=== PATIENT | female | born 1965 | race Caucasian/White ===

== ENCOUNTER 2017-12-05 17:20 | Emergency (ER) | payer OTHER, SELFPAY ==
[2017-12-05 17:23] VITALS: PULSE 89; RESP 16; TEMP 36.3; O2SAT 98
[2017-12-05 17:26] VITALS: BP 157/85
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
[2017-12-05] MEDS: Ibuprofen 600 MG TAB PO (18:18)
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
== END 2017-12-05 19:10 | disposition home or self-care (01) ==
PROVIDERS: Emergency Provider Nurse Practitioner Family; PCP General Practice
DX: S80.02XA Contusion of left knee, initial encounter (principal); S30.0XXA Contusion of lower back and pelvis, initial encounter; V40.5XXA Car driver injured in collision with pedestrian or animal in traffic accident, initial encounter; Z04.1 Encounter for examination and observation following transport accident; I10 Essential (primary) hypertension
CPT/HCPCS: 73562; 99284; 99282

== ENCOUNTER 2018-02-21 07:51 | Outpatient (REF) | payer OTHER, SELFPAY ==
[2018-02-21 13:40] LABS: ALT 43 U/L (12-78); AST 21 U/L (15-37); Albumin 3.9 g/dL (3.4-5.0); Alkaline Phosphatase 104 U/L (46-116); Anion Gap 8.6 mmol/L (3-11); BUN 16 mg/dL (7-18); Bilirubin, Total 0.5 mg/dL (0.2-1.0); CO2 26.4 mmol/L (21.0-32.0); Chloride 103 mmol/L (98-107); Cholesterol 204 mg/dL (50-200); Glucose 107 mg/dL (70-100); HDL Cholesterol 38 mg/dL (40-60); LDL CHOLESTEROL 132 mg/dL (<100); Potassium 4.2 mmol/L (3.5-5.1); Sodium 138 mmol/L (136-145); Total Protein 6.9 g/dL (6.4-8.2); Triglyceride 255 mg/dL (30-150)
== END 2018-02-21 08:11 ==
LOC: NCHCN 07:51
PROVIDERS: PCP General Practice; Visit Provider Nurse Practitioner
DX: I10 Essential (primary) hypertension (principal); E78.5 Hyperlipidemia, unspecified
CPT/HCPCS: 80053; 80061; 83721

== ENCOUNTER 2018-02-28 10:57 | Outpatient (REF) | payer OTHER, SELFPAY ==
--- NOTE | 2018-02-28 10:15 | PAPFT_PTH ---
PATIENT: Tona Cohen LOC: [facility]#:[id number] AGE/SX: 53/F ROOM: RE02/28/[address]: Deysi De León : 1965 BED: DIS: 02/28/2018 SPEC #: [id number] RECD: 02/28/18 12:57 STATUS: GABRIEL REEmmanuel #: [id number] TEDDY: 02/28/18 10:[address]: Deysi De León DEPT: [facility] Cytology RECD BY: Gemma Zarco ENTERED: 02/28/18 12:58 SP TYPE: PAPFT OTHR DR: Emmy Markham Tissues: 1 - CX/ENDOCX FOR PAP SMEARS Procedures: PAP THIN PREP/UVM Screening HPV DNA PROBE Comments: [id number]
== END 2018-02-28 11:17 ==
LOC: NCHCN 10:57
PROVIDERS: PCP General Practice; Visit Provider Nurse Practitioner
DX: Z00.00 Encounter for general adult medical examination without abnormal findings (principal); Z12.4 Encounter for screening for malignant neoplasm of cervix; Z11.51 Encounter for screening for human papillomavirus (HPV)
CPT/HCPCS: 88142; 87624

== ENCOUNTER 2018-08-28 22:18 | Outpatient (REF) | payer OTHER, SELFPAY ==
[2018-08-28 22:02] LABS: TSH (W/Ref FT4) 1.86 uIU/mL (0.358-3.74)
== END 2018-08-28 22:38 ==
LOC: NCHCN 22:18
PROVIDERS: PCP Nurse Practitioner; Visit Provider Nurse Practitioner
DX: R53.83 Other fatigue (principal)
CPT/HCPCS: 82306; 84443

== ENCOUNTER 2019-05-14 10:30 | Outpatient (REF) | payer OTHER, SELFPAY ==
--- NOTE | 2019-05-14 09:15 | PAPFT_PTH ---
PATIENT: Tona Cohen LOC: [facility]#:[id number] AGE/SX: 54/F ROOM: RE05/14/[address]: Deysi De León : 1965 BED: DIS: 05/14/2019 SPEC #: [id number] RECD: 05/14/19 12:59 STATUS: GABRIEL REEmmanuel #: [id number] TEDDY: 05/14/19 09:[address]: Deysi De León DEPT: [facility] Cytology RECD BY: Gemma Zarco Tissues: 1 - CX/ENDOCX FOR PAP SMEARS Procedures: PAP THIN PREP/UVM Screening HPV DNA PROBE Comments: [id number]
[2019-05-14 19:02] LABS: ALT 60 U/L (14-59); AST 31 U/L (15-37); Albumin 4.5 g/dL (3.4-5.0); Alkaline Phosphatase 134 U/L (46-116); Anion Gap 13.6 mmol/L (3-11); BUN 16 mg/dL (7-18); Bilirubin, Total 0.7 mg/dL (0.2-1.0); CO2 24.4 mmol/L (21.0-32.0); CREATININE 0.66 mg/dL (0.55-1.02); Calcium 9.7 mg/dL (8.5-10.1); Calculated LDL 102 mg/dL (<100); Chloride 105 mmol/L (98-107); Cholesterol 194 mg/dL (<200); Glucose 101 mg/dL (74-106); HDL Cholesterol 42 mg/dL (40-60); Potassium 4.1 mmol/L (3.5-5.1); Sodium 143 mmol/L (136-145); Total Protein 7.7 g/dL (6.4-8.2); Triglyceride 251 mg/dL (<150)
== END 2019-05-14 10:50 ==
LOC: NCHCN 10:30
PROVIDERS: PCP Nurse Practitioner; Visit Provider Nurse Practitioner
DX: Z00.00 Encounter for general adult medical examination without abnormal findings (principal); I10 Essential (primary) hypertension; E78.5 Hyperlipidemia, unspecified; Z12.4 Encounter for screening for malignant neoplasm of cervix; Z11.51 Encounter for screening for human papillomavirus (HPV)
CPT/HCPCS: 80053; 80061; 88142; 87624

== ENCOUNTER 2019-08-14 02:06 | Outpatient (CLI) | payer OTHER, SELFPAY ==
--- NOTE | 2019-08-14 | DI.MAMMO_ITS ---
EXAM: MG MAMMO SCREENING CLINICAL HISTORY: SCREENING, Z12.39 TECHNIQUE: Bilateral full field digital CC and MLO mammographic images were obtained with 3D tomosyn thesis and utilizing computer aided detection (CAD). COMPARISON: Available for comparison. FINDINGS: Masses/Architectural Distortion: There are stable scattered nodules both breasts. No suspicious mass es are seen. Microcalcifications: No suspicious pleomorphic-type are seen. Skin Thickening/Nipple Retraction: None. IMPRESSION: 1. No significant interval change with no specific features of malignancy noted. 2. Unless there is more urgent need, screening mammography is recommended, as per [employer] guidelines. BI-RADS Category 2 - Benign Findings Breast Density - Category B - Scattered areas of fibroglandular density A negative radiographic report should not delay biopsy if a dominant or clinically suspicious mass is present. Up to ten percent of cancers are not identified on mammography. A negative report may reinforce clinical impression. Adenosis and dense breasts may obscure an underlying neoplasm. False positive reports average 6 to 10%. Patient will receive a letter notifying them of these results.
== END 2019-08-14 02:26 ==
PROVIDERS: PCP Nurse Practitioner; Visit Provider Nurse Practitioner
DX: Z12.31 Encounter for screening mammogram for malignant neoplasm of breast (principal)
CPT/HCPCS: 77063; 77067

== ENCOUNTER 2019-12-02 16:59 | Outpatient (REF) | payer OTHER, SELFPAY | END 2019-12-02 17:19 | LOC: NCHCN 16:59 | PROVIDERS: PCP Nurse Practitioner; Visit Provider Nurse Practitioner Family | DX: J02.9 Acute pharyngitis, unspecified (principal) | CPT/HCPCS: 87070 ==

== ENCOUNTER 2019-12-02 17:45 | Outpatient (REF) | payer OTHER, SELFPAY ==
[2019-12-05 17:39] LABS: Patient Race White; SARS-CoV-2 RNA Undetected (Undetected); SARS-CoV-2 Specimen Source Nasal
== END 2019-12-02 18:05 ==
LOC: NCHCN 17:45
PROVIDERS: PCP Nurse Practitioner; Visit Provider Nurse Practitioner Family
DX: J02.9 Acute pharyngitis, unspecified (principal)
CPT/HCPCS: U0003

== ENCOUNTER 2020-08-11 10:43 | Outpatient (REF) | payer OTHER, SELFPAY ==
[2020-08-11 16:04] LABS: ALT 57 U/L (14-59); AST 22 U/L (15-37); Albumin 4.1 g/dL (3.4-5.0); Alkaline Phosphatase 138 U/L (46-116); Anion Gap 13.8 mmol/L (3-11); BUN 14 mg/dL (7-18); Bilirubin, Total 0.5 mg/dL (0.2-1.0); CO2 24.2 mmol/L (21.0-32.0); CREATININE 0.8 mg/dL (0.55-1.02); Calcium 9.4 mg/dL (8.5-10.1); Calculated LDL 121 mg/dL (<100); Chloride 106 mmol/L (98-107); Cholesterol 207 mg/dL (<200); Glucose 104 mg/dL (74-106); HDL Cholesterol 44 mg/dL (40-60); Potassium 4.2 mmol/L (3.5-5.1); Sodium 144 mmol/L (136-145); Total Protein 7.4 g/dL (6.4-8.2); Triglyceride 214 mg/dL (<150)
[2020-08-12 11:42] LABS: IgA 114 mg/dL (85-499); Interpretation (See Note); Tissue Transglutaminase IgA <1.2 U/mL (<4.0)
== END 2020-08-11 10:44 | disposition home or self-care (01) ==
LOC: NCHCN 10:43
PROVIDERS: PCP Nurse Practitioner; Visit Provider Nurse Practitioner
DX: K58.9 Irritable bowel syndrome, unspecified (principal); R19.7 Diarrhea, unspecified; I10 Essential (primary) hypertension; E78.5 Hyperlipidemia, unspecified
CPT/HCPCS: 80053; 80061; 82784; 83516

== ENCOUNTER 2020-08-25 18:22 | Outpatient (REF) | payer OTHER, SELFPAY ==
[2020-08-26 14:54] LABS: COVID-19 RT-PCR UVMMC Result Negative (Negative)
== END 2020-08-25 18:23 | disposition home or self-care (01) ==
LOC: LBN 18:22
PROVIDERS: PCP Nurse Practitioner; Visit Provider Physician Assistant
DX: Z20.822 Contact with and (suspected) exposure to COVID-19 (principal); J02.9 Acute pharyngitis, unspecified
CPT/HCPCS: U0003

== ENCOUNTER 2021-01-28 11:24 | Outpatient (CLI) | payer OTHER, SELFPAY ==
[2021-02-01 13:17] LABS: TB Interpretation Negative (Negative); TB1 Ag minus Nil 0.01 IU/ml; TB2 Ag minus Nil 0.01 IU/mL
== END 2021-01-28 11:25 | disposition home or self-care (01) ==
LOC: LBO 11:28
PROVIDERS: PCP Nurse Practitioner; Visit Provider Nurse Practitioner Family
DX: Z02.1 Encounter for pre-employment examination (principal)
CPT/HCPCS: 86480

== ENCOUNTER 2022-04-15 00:28 | Outpatient (CLI) | payer OTHER, SELFPAY ==
--- NOTE | 2022-04-15 12:00 | DI.MAMMO_ITS ---
Exam(s) MAMMO SCREENING EXAM: MAMMO SCREENING CLINICAL HISTORY: screening. TECHNIQUE: Bilateral full field digital CC and MLO mammographic images were obtained with 3D tomosyn thesis and utilizing computer aided detection (CAD). COMPARISON: Prior mammograms dating back to 2013 were reviewed. FINDINGS: In the anterior aspect of the right breast there is an asymmetric density seen on CC view measuring a pproximately 1.4 x 1.2 cm located 2.5 cm in from the nipple on the CC view. More posteriorly in the right breast there is a benign-appearing nodular density which has appearance probable benign intramammary lymph node, unchanged from August 2019. In the left breast there is a nodular density located laterally which is unchanged from 2013. However, there is a microcalcification group evident in the left breast now evident, this located sli ghtly lateral of center and approximately 7 cm in from the nipple on the CC view and similar distance on the MLO view. Mag views recommended. There is no significant architectural distortion nor skin thickening-retraction. IMPRESSION: Bilateral findings as described above which require further investigation. This includes a nodular d ensity anteriorly in the right breast requiring spot compression views and ultrasound of the right br east. Also microcalcification group now evident in the left breast as described above which requires spot Mag 2D views both CC, MLO, and straight lateral. BI-RADS Category 0 - Assessment Incomplete: Need additional imaging evaluation Breast Density - Category B - Scattered areas of fibroglandular density Breast density Category C or D implies that the patient has dense breast tissue. Dense breast tissue can make it harder to find cancer on a mammogram. Dense breast tissue is also associated with an incr eased risk of breast cancer. This information about the result of the mammogram report was provided to the patient to raise their awareness. Use this report when you speak with the patient about their risks for breast cancer, which includes their family history. At that time, you may recommend additional screening tests (Ultrasoun d or MRI) as these tests may add significant information. A negative radiographic report should not delay biopsy if a dominant or clinically suspicious mass is present. Up to ten percent of cancers are not identified on mammography. A negative report may reinforce clinical impression. Adenosis and dense breasts may obscure an underlying neoplasm. False positive reports average 6 to 10%. Patient will receive a letter notifying them of these results.
== END 2022-04-15 00:48 ==
LOC: DI 00:29
PROVIDERS: PCP Nurse Practitioner; Visit Provider Nurse Practitioner Women's Health
DX: Z12.31 Encounter for screening mammogram for malignant neoplasm of breast (principal); R92.8 Other abnormal and inconclusive findings on diagnostic imaging of breast
CPT/HCPCS: 77063; 77067

== ENCOUNTER 2022-04-28 00:22 | Outpatient (CLI) | payer OTHER, SELFPAY ==
--- NOTE | 2022-04-28 | DI.US_ITS ---
Exam(s) US BREAST RT COMPLETE MG MAMMO SCREEN CALL BACK BI EXAM: MG MAMMO SCREEN CALL BACK BI AND COMPLETE RIGHT BREAST ULTRASOUND CLINICAL HISTORY: NODULAR DENSITY RT BREAST, MICROCALCIFICATIONS LT BREAST. R92.8 ABNL MAMMO. TECHNIQUE: BILATERAL spot mammographic images obtained with BOTH 2D AND 3D tomosynthesisand utilizin g computer aided detection (CAD). . Complete RIGHT breast Ultrasound was also performed, including all 4 quadrants, the retroareolar vinicius on, and the ipsilateral axilla. COMPARISON: Prior mammograms were reviewed. This additional imaging was performed due to findings described on the recent screening mammogram of 04/15/2022 prior mammograms of 2013 and August 2019 wer e reviewed. There are no interval mammograms since August 2019.. FINDINGS: DIAGNOSTIC MAMMOGRAM: Right breast: Additional mammographic views performed todaydo not dissipate the anteriorly located nodule. Left breast: The 2D Mag views reveal this microcalcification group to be presently benign in appearance. Six-romeo h follow-up recommended COMPLETE RIGHT BREAST ULTRASOUND: Ultrasound performed today reveals a 7 x 3 millimeter benign-appearing micro cyst at 12 o'clock posit ion, this corresponding to the finding on the mammogram.. At the 2 o'clock position there is a small 3 x 2 millimeter finding which is probably hemorrhagic julius rocyst or tiny fibroadenoma. At the 6 o'clock position there is a benign 4 millimeter microcyst. There are no other focal ultrasound findings in the 4 quadrants of the right breast. Scanning of the ipsilateral axilla reveals no significant adenopathy. IMPRESSION: 1. Right breast nodule which appears to be a microcyst at 12 o'clock position as seen on today's ult rasound. There also other benign-appearing ultrasound findings in the right breast as detailed above . 2. Left breast microcalcification group which presently exhibits benign characteristics but which wa s not evident on the most recent mammogram of August 2019. Appropriate follow-up as discussed by myself with the patient today, is repeat breast imaging in 6 mo nths, this too is repeat mammogram and Mag views of the left breast microcalcification group as well as repeat mammogram and ultrasound of the right breast. The patient was informed of these findings and recommendations by myself prior to leaving the departm ent today. BI-RADS Category 3 - 6 month - Probably Benign Finding: Recommend follow-up mammography in 6 months Breast Density - Category C - Heterogeneously dense Breast density Category C or D implies that the patient has dense breast tissue. Dense breast tissue can make it harder to find cancer on a mammogram. Dense breast tissue is also associated with an incr eased risk of breast cancer. This information about the result of the mammogram report was provided to the patient to raise their awareness. Use this report when you speak with the patient about their risks for breast cancer, which includes their family history. At that time, you may recommend additional screening tests (Ultrasoun d or MRI) as these tests may add significant information. A negative radiographic report should not delay biopsy if a dominant or clinically suspicious mass is present. Up to ten percent of cancers are not identified on mammography. A negative report may reinforce clinical impression. Adenosis and dense breasts may obscure an underlying neoplasm. False positive reports average 6 to 10%. Patient will receive a letter notifying them of these results.
== END 2022-04-28 00:42 ==
LOC: DI 00:22
PROVIDERS: PCP Nurse Practitioner; Visit Provider Nurse Practitioner Women's Health
DX: Z12.31 Encounter for screening mammogram for malignant neoplasm of breast (principal); R92.8 Other abnormal and inconclusive findings on diagnostic imaging of breast
CPT/HCPCS: 76642; 77063; 77067

== ENCOUNTER → 2022-10-27 04:17 | Outpatient (CLI) | payer OTHER, SELFPAY ==
--- NOTE | 2022-10-27 08:00 | DI.MAMMO_ITS ---
Exam(s) US BREAST LT COMPLETE US BREAST RT COMPLETE MG MAMMO DIAGNOSTIC BI EXAM: MG MAMMO DIAGNOSTIC BI AND BILATERAL COMPLETE BREAST ULTRASOUND CLINICAL HISTORY: 6 month f/u,RT BREAST NODULE,LT BREAST MICROCALCIFICATION. TECHNIQUE: BILATERAL CC AND MLO mammographic images were obtained with 3D tomosynthesis technique an d utilizing computer aided detection (CAD). ALSO LEFT BREAST 2D MAG VIEW PERFORMED BILATERAL COMPLETE BREAST ULTRASOUND performed, including all 4 quadrants and the retroareolar region s and both axillary regions. COMPARISON: Prior mammograms dating back to 2013 were reviewed, the most recent being April 2022. . Prior right breast ultrasound April 2022 was also reviewed FINDINGS: BILATERAL DIAGNOSTIC MAMMOGRAM: In the right breast the previously described nodular densities remain unchanged. In the left breast there is a lobulated nodular density in the upper outer quadrant which is unchange d from at least 2013 and has apparently undergone prior biopsy (fibroadenoma according to the patient ). The recently described microcalcification group in the left breast appears unchanged and remains summer gn appearance. BILATERAL COMPLETE BREAST ULTRASOUND: Left breast: At the 2 o'clock position there is a 1.6 by 0.8 cm lobulated solid nodule corresponds to the chronica lly present nodule on the mammogram and has appearance of a fibroadenoma with neutral through transmi ssion. This apparently has undergone prior biopsy according to the patient. There are no other angelique d nodules in left breast. At the 6 o'clock position there are 2 small benign microcysts measuring 6 and 4 mm. Scanning of the left axilla is negative for adenopathy. Right breast: At the 12 o'clock position the previously described 7 x 3 mm cyst is no longer seen. At the 11 o'clock position there is a 7 by millimeter microcyst and there is also a smaller 3-4 vishal meter microcyst. No other focal ultrasound findings in the right breast. Scanning of the right axilla is negative for adenopathy IMPRESSION: 1. Stable benign-appearing microcalcification group in the left breast, unchanged from mammogram of F ebruary 2022. 2. Stable lobulated left breast solid nodule which is unchanged from at least 2013 and has been previ ously biopsied according to the patient-fibroadenoma. 3. Stable right breast mammographic findings. Benign-appearing right breast ultrasound findings Appropriate follow-up is repeat mammogram and breast ultrasound in 6 months which is a time for next scheduled yearly mammogram. At that time repeat Mag 2D view of left breast microcalcification group is again recommend. The patient was informed of the findings and follow-up recommendations by myself prior to leaving the department today. BI-RADS Category 3 - 6 month - Probably Benign Finding: Recommend follow-up mammography in 6 months Breast Density - Category B - Scattered areas of fibroglandular density Breast density Category C or D implies that the patient has dense breast tissue. Dense breast tissue can make it harder to find cancer on a mammogram. Dense breast tissue is also associated with an incr eased risk of breast cancer. This information about the result of the mammogram report was provided to the patient to raise their awareness. Use this report when you speak with the patient about their risks for breast cancer, which includes their family history. At that time, you may recommend additional screening tests (Ultrasoun d or MRI) as these tests may add significant information. A negative radiographic report should not delay biopsy if a dominant or clinically suspicious mass is present. Up to ten percent of cancers are not identified on mammography. A negative report may reinforce clinical impression. Adenosis and dense breasts may obscure an underlying neoplasm. False positive reports average 6 to 10%. Patient will receive a letter notifying them of these results.
== END ==
PROVIDERS: PCP Nurse Practitioner Family; Visit Provider Nurse Practitioner Women's Health
DX: N63.21 Unspecified lump in the left breast, upper outer quadrant (principal); Z12.31 Encounter for screening mammogram for malignant neoplasm of breast; N63.15 Unspecified lump in the right breast, overlapping quadrants
CPT/HCPCS: 76642; 77062; 77066; G0279

== ENCOUNTER 2022-11-16 04:01 | Outpatient (CLI) | payer OTHER, SELFPAY ==
[2022-11-16 08:59] LABS: Hemoglobin A1C 5.6 % (<5.7)
[2022-11-16 09:07] LABS: ALT 44 U/L (14-59); AST 19 U/L (15-37); Albumin 3.9 g/dL (3.4-5.0); Alkaline Phosphatase 116 U/L (46-116); Anion Gap 9.1 mmol/L (3-11); BUN 19 mg/dL (7-18); Bilirubin, Total 0.6 mg/dL (0.2-1.0); CO2 24.9 mmol/L (21.0-32.0); CREATININE 0.8 mg/dL (0.55-1.02); Calcium 9.3 mg/dL (8.5-10.1); Calculated LDL 97 mg/dL (<100); Chloride 104 mmol/L (98-107); Cholesterol 189 mg/dL (<200); Estimated GFR 86.96 (mL/min/1.73m2); Glucose 115 mg/dL (74-106); HDL Cholesterol 50 mg/dL (40-60); Sodium 138 mmol/L (136-145); Total Protein 7.5 g/dL (6.4-8.2); Triglyceride 211 mg/dL (<150)
== END 2022-11-16 04:02 | disposition home or self-care (01) ==
LOC: LBO 04:01
PROVIDERS: PCP Nurse Practitioner Family; Visit Provider Nurse Practitioner Family
DX: Z76.89 Persons encountering health services in other specified circumstances (principal)
CPT/HCPCS: 36415; 80053; 80061; 83036; 84443

== ENCOUNTER → 2023-04-20 01:44 | Outpatient (CLI) | payer OTHER, SELFPAY ==
--- NOTE | 2023-04-20 05:47 | DI.MAMMO_ITS ---
Exam(s) MG MAMMO DIAGNOSTIC BI EXAM: MG MAMMO DIAGNOSTIC BI CLINICAL HISTORY: F/U ABNL MAMMO,6 MO F/U, R92.8 TECHNIQUE: Mammograms were interpreted according to the usual protocol including computer analysis w ith CAD system, tomosynthesis and C-view imaging. Additional spot magnification views performed of t he left breast. COMPARISON: MG Screening-Bilateral Mammography from 07/17/2013 MG MG MAMMO SCREENING from 08/14/2019 MG MG MAMMO SCREENING from 04/15/2022 US US BREAST RT COMPLETE from 04/28/2022 US US BREAST RT COMPLETE from 10/27/2022 MG MG MAMMO DIAGNOSTIC BI from 10/27/2022 US US BREAST LT COMPLETE from 10/27/2022 FINDINGS: The breasts are composed of scattered fibroglandular densities, Breast Density category B. No suspicious masses or suspicious microcalcifications are seen. Stable bilateral areas of nodularit y. Chronic appearing calcifications, unchanged, in the upper outer quadrant. No skin thickening or abnormal axillary lymph nodes are seen. There has been no significant change from prior exams. IMPRESSION: BI-RADS Category 2 - Negative Mammogram with benign findings. Yearly screening mammography is recommended. Breast Density - Category B, scattered fibroglandular densities. A negative radiographic report should not delay biopsy if a dominant or clinically suspicious mass is present. Up to ten percent of cancers are not identified on mammography. A negative report may reinforce clinical impression. Adenosis and dense breasts may obscure an underlying neoplasm. False positive reports average 6 to 10%. Patient will receive a letter notifying them of these results.
== END ==
PROVIDERS: PCP Nurse Practitioner Family; Visit Provider Nurse Practitioner Women's Health
DX: Z12.31 Encounter for screening mammogram for malignant neoplasm of breast (principal); R92.8 Other abnormal and inconclusive findings on diagnostic imaging of breast
CPT/HCPCS: 77062; 77066; G0279

== ENCOUNTER 2023-07-07 01:12 | Outpatient (CLI) | payer OTHER, SELFPAY ==
[2023-07-07 09:44] LABS: ALT 57 U/L (14-59); AST 22 U/L (15-37); Alkaline Phosphatase 112 U/L (46-116); Anion Gap 10.4 mmol/L (3-11); BUN 17 mg/dL (7-18); Bilirubin, Total 0.6 mg/dL (0.2-1.0); CO2 25.6 mmol/L (21.0-32.0); CREATININE 0.8 mg/dL (0.55-1.02); Calcium 9.1 mg/dL (8.5-10.1); Calculated LDL 103 mg/dL (<100); Chloride 106 mmol/L (98-107); Cholesterol 196 mg/dL (<200); Estimated GFR 86.42 (mL/min/1.73m2); Glucose 114 mg/dL (74-106); HDL Cholesterol 49 mg/dL (40-60); Sodium 142 mmol/L (136-145); Total Protein 7.5 g/dL (6.4-8.2); Triglyceride 222 mg/dL (<150)
[2023-07-07 10:02] LABS: Vitamin D 25 Total 25.4 ng/mL (30-100)
[2023-07-07 20:42] LABS: Hepatitis C Ab w Rflx HCV PCR Negative (Negative)
== END 2023-07-07 01:13 | disposition home or self-care (01) ==
LOC: LBO 01:12
PROVIDERS: PCP Nurse Practitioner Family; Visit Provider Nurse Practitioner Family
DX: Z00.00 Encounter for general adult medical examination without abnormal findings (principal)
CPT/HCPCS: 36415; 80053; 80061; 82306; 86803

== ENCOUNTER 2023-09-24 17:45 | Emergency (ER) | payer OTHER, SELFPAY ==
--- NOTE | 2023-09-24 17:45 | DI.RAD_ITS ---
Exam(s) XR KNEE RT 3V AP,LAT,EDA EXAM: XR KNEE RT 3V AP,LAT,EDA CLINICAL HISTORY: pain s/p fall. TECHNIQUE: 2D digital imaging was performed. COMPARISON: No exams were available for comparison FINDINGS: 3 views There is a fracture of the outer rim of the medial tibial plateau with mild displacement of the fract ure fragment. There does not appear to be an obvious joint effusion-hemarthrosis. Bone density is normal. No significant osseous lesions. No radiopaque foreign body. No obvious degenerative changes evident in the knee joint. IMPRESSION: Fracture of the medial rim of the medial tibial plateau. Orthopedic follow-up recommended First read by Alexandra [facility] Final report called by myself to emergency room physician 09/25/2023 a.m. DATA REPOSITORY: RADIATION DOSE DELIVERED:
[2023-09-24 17:47] VITALS: BP 131/99; PULSE 87; RESP 16; TEMP 36.9; O2SAT 98
--- NOTE | 2023-09-24 17:56 | W.ED.GENAD ---
Discharge Plan Disposition Patient Disposition: Home Condition: Stable Discharge Details Clinical Impression: Contusion of knee, right Primary Care Provider: Teresa Sykes ED Provider: Leonard Hogan Home Meds and New Rx's Prescriptions: Continued carvedilol 25 mg tablet 25 mg PO BID Rx Instructions: must administer with a meal/food Zepbound 2.5 mg/0.5 mL pen injector 2.5 mg subcut QWEEK Qty: 2 1RF albuterol sulfate [ProAir HFA] 90 mcg/actuation HFA aerosol inhaler 2 puff inhalation Q6H PRN cholecalciferol (vitamin D3) 25 mcg (1,000 unit) tablet 25 mcg PO DAILY acetaminophen [Tylenol] 325 mg tablet 325 mg PO ONCE PRN riboflavin (vitamin B2) [Vitamin B-2] 100 mg tablet 100 mg PO DAILY Ubrelvy 50 mg tablet 50 mg PO ONCE PRN (Reason: migraine headache) Qty: 30 1RF Rx Instructions: as a single dose; may repeat once in >=2 hours after first dose if needed amlodipine 10 MG tablet 10 mg PO DAILY Qsymia 3.75-23 mg capsule, ER multiphase 24 hr 1 cap PO DAILY PRN Patient Comments: TAKE ONE CAPSULE BY MOUTH EVERY DAY FOR 14 DAYS THEN SWITCH TO A HIGHER DOSE Discharge Instructions Additional Instructions: If pain is not improving follow-up with your primary care provider if the radiologist sees anything of concern on the xray I will call you If you feel more ill or have severe worsening pain return to the emergency department for reevaluation HPI General Mode of arrival: ambulatory. Date/Time Provider Initiated Documentation: 09/24/23 17:46. Limitations to Documentation: no limitations. Information obtained by: patient. History of Present Illness 58 year old F presents to the emergency department with the chief complaint of right knee injury, described as moderate, Quality is described as aching, and is localized to the right and lower extremity. Patient started experiencing this hour(s) (1) and it has been constant. Rest improves symptom(s), Movement worsens symptoms . Patient notes no other symptoms.. Patient did receive the following treatments prior to arrival, none Related Data Home Medications ?Medication ?Instructions ?Recorded ?Confirmed amlodipine 10 mg tablet 10 mg PO DAILY 09/01/16 09/24/23 acetaminophen 325 mg tablet 325 mg PO ONCE PRN 09/23/22 09/24/23 (Tylenol) albuterol sulfate 90 mcg/actuation 2 puff inhalation Q6H PRN 09/23/22 09/24/23 aerosol inhaler (ProAir HFA) cholecalciferol (vitamin D3) 25 25 mcg PO DAILY 09/23/22 09/24/23 mcg (1,000 unit) tablet riboflavin (vitamin B2) 100 mg 100 mg PO DAILY 09/23/22 09/24/23 tablet (Vitamin B-2) ubrogepant 50 mg tablet (Ubrelvy) 50 mg PO ONCE PRN migraine 11/10/22 09/24/23 headache #30 tabs carvedilol 25 mg tablet 25 mg PO BID 08/30/23 09/24/23 tirzepatide (weight loss) 2.5 2.5 mg (0.5 mL) subcut QWEEK #2 mL 08/30/23 09/24/23 mg/0.5 mL subcutaneous pen injector (Zepbound) phentermine 3.75 mg-topiramate ER 1 cap PO DAILY PRN 09/24/23 09/24/23 23 mg capsule,ext.release 24hr mphas (Qsymia) Previous Rx's ?Medication ?Instructions ?Recorded ubrogepant 50 mg tablet (Ubrelvy) 50 mg PO ONCE PRN migraine 11/10/22 headache #30 tabs tirzepatide (weight loss) 2.5 2.5 mg (0.5 mL) subcut QWEEK #2 mL 08/30/23 mg/0.5 mL subcutaneous pen injector (Zepbound) Allergies Allergy/AdvReac Type Severity Reaction Status Date / Time Penicillins Allergy Severe Anaphylaxsi Unverified 09/24/23 17:54 s acetaminophen (From Tylenol) Allergy Intermediate Skin Rash Unverified 09/24/23 17:54 General Stated Complaint: Orthopedic ABBY: 3 Review of Systems All systems reviewed & are unremarkable except as noted in HPI and below Constitutional Constitutional: Denies chills, Denies fever(s) and Denies weakness Cardiovascular Cardiovascular: Denies chest pain and Denies dyspnea Respiratory Respiratory: Denies cough and Denies dyspnea Gastrointestinal Gastrointestinal: Denies abdominal pain, Denies nausea and Denies vomiting Integumentary/Breasts Skin/Breast: Denies rash Neurologic Neurologic: Denies weakness Exam Const General: no acute distress Orientation: alert [facility] Head: normal to inspection Ears: external ears normal General nose exam: external nose normal Mouth: moist mucous membranes Eyes General: appearance normal, both eyes and all related structures Neck Neck: normal visual inspection Resp Effort & Inspection: normal respiratory effort and able to speak in complete sentences Cardio Rate: regular rate Skin General skin exam: no rashes or lesions noted Neuro General: patient alert and patient oriented x3 Extrem General: normal to inspection, full ROM and capillary refill normal Psych Mental Status: mental status grossly normal Course Vital Signs Vital signs: Vital Signs Temperature 36.9 C 09/24/23 17:47 Pulse 87 09/24/23 17:47 Respiratory Rate 16 09/24/23 17:47 Blood Pressure 131/99 H 09/24/23 17:47 Pulse Oximetry 98 09/24/23 17:47 Temperature 36.9 C 09/24/23 17:47 Temperature Source Tympanic 09/24/23 17:47 Pulse 87 09/24/23 17:47 Respiratory Rate 16 09/24/23 17:47 Blood Pressure 131/99 H 09/24/23 17:47 Blood Pressure Position Sitting 09/24/23 17:47 Pulse Oximetry 98 09/24/23 17:47 Oxygen Delivery Method Room Air 09/24/23 17:47 Oxygen Flow Rate 0 09/24/23 17:47 Pain Level 8 09/24/23 17:47 Medical Decision Making 58-year-old female comes in with right knee injury. She says she was walking downstairs when her sock got caught on a nail causing her to fall forward down 3 steps. She did not hit her head or have loss of consciousness. She only has pain in the right knee. She has full range of motion of the knee but does have tenderness over the patella when she does this. She has intact distal sensation and pulses. She has tenderness when I palpate the patella there is no visible or palpable deformity. Suspect bone contusion but will obtain x-rays to evaluate for fracture. X-ray negative on my read, turnaround time on the [facility] is currently over an hour and patient is awake, will provide a hinged knee brace and she declines crutches that she is able to tolerate weightbearing. I will call her if you are sees anything of concern on the x-ray. She will follow-up with her PCP if symptoms are not improving and return precautions given Differential Diagnosis Differential Diagnosis: Fracture, contusion Imaging Data Radiologic Study: Attestation: I personally reviewed and interpreted this imaging study as follows: Imaging: X-Ray My impression: No acute findings 10-year-old male swollen generally not just a descriptive term for usually is like chest pressure but more like burning sensation with correct yeah yeah yeah Quality:SDOH Health Related Social Needs: No Data to Display PFSH All Active Problems (Updated 09/24/23 @ 18:29 by Leonard Hogan MD) Contusion of knee, right (Acute) Irritable bowel syndrome with diarrhea (Chronic) Essential hypertension (Chronic) Hyperlipidemia (Chronic) Migraine headache with aura (Chronic) Obesity (BMI 30-39.9) (Chronic) Vitamin D deficiency (Chronic) Allergic rhinitis (Chronic) Exercise-induced asthma (Chronic) Medical History (Updated 09/24/23 @ 18:29 by Leonard Hogan MD) Herpes zoster Surgical History (Updated 10/31/22 @ 09:08 by Teresa Sykes NP) S/P left breast biopsy (~2020) Fibroadenoma on pathology H/O tubal ligation Hx of LASIK Family History (Updated 10/31/22 @ 08:37 by Teresa Sykes NP) Mother , 60s from colon cancer Colon cancer Depression Hypertension Father Diabetes Brother No problems noted. Brother Asthma Diabetes Maternal Grandfather Colon cancer Maternal Grandmother Brain aneurysm Paternal Grandfather Heart disease Paternal Grandmother Heart disease Social History Smoking/Tobacco Use Status: Never Second Hand Exposure: Yes Smoking risk assessment performed?: Yes Alcohol Intake: current Alcohol Intake frequency: a few times a month Alcohol type: beer and hard liquor Drug use: Never Substance use type: does not use Caregiver/Support person: Yes Household members: significant other Housing: house Communication Needs: None Do you need help understanding health information?: Never current occupation: Payroll at [employer] Pets and animals: Yes Pets and animals: cat(s) Sexually active: Yes Do you think of yourself as: straight/heterosexual Current gender identity: female What is your relationship status?: living with partner How often do you talk on the phone with friends or family?: once per week How often do you get together with friends or relatives?: once per week How often do you attend anabaptism or spiritism services?: decline to answer Do you belong to any clubs or organized social groups?: no Panel score (0-1 are the most socially isolated patients): 1 What type of physical activity do you participate in: none Frequency: does not exercise Kamilah/Yazidism: None Special kamilah needs: No Seatbelt use: never Helmet use: No Drive intox or ride w/intox trailer driver: No Do you feel safe in your relationship?: Yes Female Reproductive History Menstrual control method: permanent sterilization Menopause type: natural History History 0 Para Hx # Term Pregnancies Multiple births Hx # Pregnancies Ectopic pregnancies AB induced Hx Number of Living Children AB spontaneous
[2023-09-24 18:39] VITALS: BP 131/99; PULSE 87; RESP 16; TEMP 36.9; O2SAT 98
--- NOTE | 2023-09-24 19:00 | DI.VRAD_ITS ---
PROCEDURE INFORMATION: Exam: XR Right Knee Exam date and time: 09/24/2023 6:06 PM Age: 58 years old Clinical indication: Right knee pain, S/P fall TECHNIQUE: Imaging protocol: Radiologic exam of the right knee. Views: 3 views. COMPARISON: No relevant prior studies available. FINDINGS: Bones/joints: No acute fracture. No dislocation. No focal osseous lesion. No significant degenerative change. No joint effusion. Soft tissues: No soft tissue radiopaque foreign body. IMPRESSION: No acute findings by plain film. Dictated and Authenticated by: Charles Cobos MD. Ordering:VITOR Valle MD
== END 2023-09-24 18:42 | disposition home or self-care (01) ==
PROVIDERS: Emergency Provider Emergency Medicine; PCP Nurse Practitioner Family
DX: S82.144A Nondisplaced bicondylar fracture of right tibia, initial encounter for closed fracture (principal); I10 Essential (primary) hypertension; E78.5 Hyperlipidemia, unspecified; W01.198A Fall on same level from slipping, tripping and stumbling with subsequent striking against other object, initial encounter; Y93.01 Activity, walking, marching and hiking; Y92.018 Other place in single-family (private) house as the place of occurrence of the external cause
CPT/HCPCS: 73562; 99283

== ENCOUNTER → 2023-09-27 11:27 | Outpatient (CLI) | payer OTHER, SELFPAY ==
--- NOTE | 2023-09-27 11:00 | DI.RAD_ITS ---
Exam(s) XR ANKLE RT COMPLETE XR TIB/FIB RT EXAM: XR ANKLE RT COMPLETE CLINICAL HISTORY: fall, distal leg into ankle pain,w19.[id number]. TECHNIQUE: 2D digital imaging was performed. Three views of the ankle. Two views of the tibia and fibula COMPARISON: CR XR knee LT 3V AP,lat,eda from 12/05/2017 CR,XR XR KNEE RT 3V AP,LAT,EDA from 09/24/2023 CR XR TIB/FIB RT from 09/27/2023 FINDINGS: BONES: Tiny bony density seen at the medial margin of the medial tibial plateau which may be in a acu te fracture versus old soft tissue calcification. No new fracture is present. No bony destructive l esion is seen. Tiny plantar calcaneal spur. JOINTS: The ankle mortise is normally aligned. SOFT TISSUE: Edema IMPRESSION: Unremarkable radiographs of the right ankle. Tiny bony density seen adjacent to the medial tibial plateau may represent an acute fracture fragment both versus related to old trauma. DATA REPOSITORY: RADIATION DOSE DELIVERED:
== END ==
PROVIDERS: PCP Nurse Practitioner Family; Visit Provider Nurse Practitioner Family
DX: M79.661 Pain in right lower leg (principal); M25.571 Pain in right ankle and joints of right foot; M77.31 Calcaneal spur, right foot; M79.89 Other specified soft tissue disorders; W19.XXXA Unspecified fall, initial encounter
CPT/HCPCS: 73590; 73610

== ENCOUNTER → 2023-10-10 02:38 | Outpatient (CLI) | payer OTHER, SELFPAY ==
--- NOTE | 2023-10-10 06:45 | DI.MRI_ITS ---
Exam(s) MR LOWER JOINT RT WO EXAM: MR LOWER JOINT RT WO CLINICAL HISTORY: R KNEE INJURY,contusion,s80.01xa,m23.91,internal derangement rt knee. TECHNIQUE: Multiplanar multisequence MRI was performed. COMPARISON: CR,XR XR KNEE RT 3V AP,LAT,EDA from 09/24/2023 CR XR TIB/FIB RT from 09/27/2023 FINDINGS: BONES: Mild edema at the medial aspect of the medial tibial plateau. Prior plain films question smal l fracture. The fracture fragment is not discretely visible on the on the exam. JOINTS: A minimal joint effusion is present. There are 2 adjacent loose bodies seen at the anterola teral joint space, beneath the lateral retinaculum. The measure 7 millimeters each in size. In retr ospect, they are visible on prior plain films. Articular cartilage: Patellofemoral joint: Articular cartilage is moderately thinned. No focal defect. Medial femoral tibial joint: Articular cartilage is mildly thinned. Lateral femoral tibial joint: Articular cartilage shows mild thinning. LIGAMENTS: Anterior Cruciate: Unremarkable. Posterior Cruciate: Unremarkable. Medial Collateral:Mild surrounding edema but no visible tear. Lateral Collateral ligament complex: Unremarkable. TENDONS: Extensor mechanism: Unremarkable. Medial retinaculum: Unremarkable. Lateral retinaculum: Unremarkable. Popliteus: Unremarkable. MENISCI: The medial meniscus is mildly diminutive and peripherally displaced with could which could be seconda ry to degenerative changes. No focal tear is visible. The lateral meniscus is unremarkable. MUSCLES: Unremarkable. SOFT TISSUES: Mild edema in the subcutaneous tissues. IMPRESSION: Medial collateral ligament sprain. Small area of contusion of the medial tibial plateau. The previously noted fracture fragment is not discretely visible. Two loose bodies are noted in the anterolateral joint space. DATA REPOSITORY:
== END ==
PROVIDERS: PCP Nurse Practitioner Family; Visit Provider Student in an Organized Health Care Education/Training Program
DX: S80.01XA Contusion of right knee, initial encounter (principal); M23.91 Unspecified internal derangement of right knee; S83.411A Sprain of medial collateral ligament of right knee, initial encounter
CPT/HCPCS: 73721

== ENCOUNTER 2023-12-26 01:42 | Outpatient (CLI) | payer OTHER, SELFPAY ==
--- NOTE | 2023-12-26 14:50 | DI.MRI_ITS ---
Exam(s) MR LOWER JOINT RT WO EXAM: MR LOWER JOINT RT WO CLINICAL HISTORY: ? SYNDESMOTIC INJURY,contusion rt ankle,s90.01xa TECHNIQUE: Multiplanar multisequence MRI was performed without intravenous contrast. COMPARISON: CR XR ANKLE RT COMPLETE from 09/27/2023 FINDINGS: SKIN: No evidence of ulcer nor subcutaneous tract. There is prominent subcutaneous edema on both gianni es of the ankle. There is also deep subcutaneous edema anterior to the mid-lower tibia. BONES/JOINTS: No evidence of fracture nor bone contusion. There is a small amount of increased fluid in the tibiotalar joint. Also in the posterior aspect of the subtalar joint. No evidence of effusi ons in the talonavicular and calcaneocuboid articulations. The talar dome appears unremarkable. Th e ankle mortise is maintained. There is no evidence of para-articular ganglion.There is no evidence o f osseous tarsal coalition. LIGAMENTS: The anterior and posterior distal tibiofibular syndesmotic ligaments appear intact. The an terior and posterior talofibular ligaments appear intact. The calcaneofibular ligament appears intact . On the medial aspect of the ankle the deltoid ligament complex appears intact. The calcaneonavicular spring ligament appears intact. SINUS TARSI: There is no loss of the normal fat signal in this space. Interosseous ligament is intac t. There is no evidence of sinus tarsi ganglion cyst. MUSCULOTENDINOUS STRUCTURES: Achilles tendon: Unremarkable. No evidence of tear nor tendinitis/tendinosis. Plantar fascia: Unremarkable. No evidence of tear, abnormal thickening, nor abnormal nodularity. Anterior Extensor tendons: Intact . However, there is some fluid evident around the distal attachmen t site of this tendon at the level of the medial cuneiform consistent with insertional strains/perite ndinitis. However, there is no significant tear of this tendon demonstrated. Other extensor tendons a ppear unremarkable. Medial Tendons: Posterior Tibialis: Unremarkable. No tear or tenosynovitis evident. Flexor Digitorum longus: Unremarkable. No tear or tenosynovitis evident. Flexor Hallicus longus: Unremarkable. No tear or tenosynovitis evident. Lateral Tendons: Peroneus longus: Unremarkable. No tear nor tenosynovitis evident. Peroneus brevis:There is longtitudinal split tear of this tendon in the retro malleolar/infra malleol ar segment with minimal surrounding fluid. No full-thickness tear. No prominent tenosynovitis SOFT TISSUES: There is subcutaneous edema on both sides of the ankle tracking down into the dorsal la teral aspect of the midfoot. OTHER FINDINGS: None. IMPRESSION: 1. No evidence of tear of the distal tibial fibular syndesmotic ligaments nor of the talofibular and deltoid ligaments. 2. Small tibiotalar-ankle joint effusion. Talar dome appears unremarkable. No osteochondral defects. No loose intra-articular bodies evident nor subarticular bone edema. 3. Short segment split tearing of the Peroneus brevis tendon at the lateral malleolus level. No full- thickness tear of this tendon nor prominent tenosynovitis. The adjacent peroneus longus tendon appear s unremarkable. 4. Moderate amount of subcutaneous edema around both sides of the ankle and extending distally into t he dorsal lateral aspect of the foot. 5. No abnormal marrow signal to suggest bone contusion nor stress fracture in the bones of the ankle and proximal-mid foot. DATA REPOSITORY:
--- NOTE | 2023-12-26 18:17 | DI.VRAD_ITS ---
PROCEDURE INFORMATION: Exam: MR Right Lower Extremity Joint Without Contrast; Ankle Exam date and time: 12/26/2023 2:02 PM Age: 58 years old Clinical indication: Injury or trauma; Other: Contusion; Injury details: ? Syndesmotic injury TECHNIQUE: Imaging protocol: Magnetic resonance imaging of the right lower extremity without contrast. Exam focused on the ankle. COMPARISON: MR LOWER JOINT RT WO 10/10/2023 7:38 AM FINDINGS: Bones/joints: Small ankle joint effusion. No fractures or bone contusions. Mild osteoarthritic spurring in the talonavicular joint. Chondral thinning along the weight-bearing articular surfaces of the mortise joint with no focal osteochondral defects. LIGAMENTS: Distal tibiofibular syndesmosis: Anterior and posterior distal tibiofibular ligaments are intact and the marginally visualized distal tibiofibular syndesmosis is intact.. Anterior talofibular ligament: Anterior talofibular ligament is intact. Posterior talofibular ligament: Posterior talofibular ligament is intact. Calcaneofibular ligament: Calcaneofibular ligament is intact. Deltoid ligament complex: Deltoid complex is intact. Spring ligament complex: Calcaneonavicular spring ligament is intact. Lisfranc ligament: Lisfranc ligamentous complex is intact. TENDONS: Flexor tendons of foot: Flexor tendons are intact. Tibialis posterior tendon: Posterior tibial tendon intact with slightly excessive tenosynovial fluid distally, possibly low-grade strain, grade 1 injury. Peroneal tendons: Peroneus longus tendon is intact. Peroneus brevis tendon demonstrates age indeterminate short segment longitudinal split tear in the retro malleolar to immediately inframalleolar segment, with mild associated peroneus tenosynovitis. Extensor tendons of foot: Extensor tendons are intact. Tibialis anterior tendon: Tibialis anterior tendon is intact, with small volume fluid near its distal attachment suspicious for mild insertional strain and peritendinitis, grade 1 injury. Achilles tendon: Achilles tendon is intact with T2 hyperintensity around the distal segment and insertional zone suspicious for low-grade strain without focal tear. Tarsal canal (Sinus tarsi): Sinus tarsi is normal. The cervical and interosseous ligaments appear intact. Tarsal tunnel: Tarsal tunnel is normal. Soft tissues: Moderate subcutaneous soft tissue swelling around the medial and lateral ankle and tracking into the dorsal lateral midfoot and forefoot. Mild muscular edema in the distal abductor hallucis longus musculature suggesting low-grade muscular strain without tear. Plantar fascia: Plantar fascia is intact. IMPRESSION: 1. No evidence of injury involving the distal tibiofibular syndesmosis or distal tibiofibular ligaments. 2. There is a short segment longitudinal split tear involving the peroneus brevis tendon at its retromalleolar to immediately inframalleolar segment. This is age indeterminate with only minor tenosynovial fluid/swelling locally, potentially chronic. 3. Low-grade strain, grade 1 injury, of multiple tendons in the distal abductor hallucis longus musculature as detailed above. 4. Small ankle joint effusion. Dictated and Authenticated by: Rowdy Griffin MD. Ordering:ARELI Gonzales MD
== END 2023-12-26 02:02 ==
LOC: DI 01:43
PROVIDERS: PCP Nurse Practitioner Family; Visit Provider Student in an Organized Health Care Education/Training Program
DX: S90.01XA Contusion of right ankle, initial encounter (principal); X58.XXXA Exposure to other specified factors, initial encounter
CPT/HCPCS: 73721

== ENCOUNTER 2024-01-03 15:48 | Outpatient (CLI) | payer OTHER, SELFPAY ==
--- NOTE | 2024-01-03 13:19 | DI.RAD_ITS ---
Exam(s) XR KNEE RT 2V AP,LAT EXAM: XR KNEE RT 2V AP,LAT CLINICAL HISTORY: F/U RIGHT MCL SPRAIN. TECHNIQUE: 2D digital imaging was performed. COMPARISON: CR,XR XR KNEE RT 3V AP,LAT,EDA from 09/24/2023 FINDINGS: 3 views No acute fractures. No joint effusion. Small osteophytic density seen adjacent to the medial aspect of the medial tibial plateau is again noted. There is mild joint space narrowing in the medial compartment. No osteophytes. Corticated density l aterally is probably fabella although not visible on the lateral view and was not visible on 09/24/19 24 images. IMPRESSION: As above. DATA REPOSITORY: RADIATION DOSE DELIVERED:
== END 2024-01-03 15:49 | disposition home or self-care (01) ==
LOC: DIORS 15:48
PROVIDERS: PCP Nurse Practitioner Family; Visit Provider Student in an Organized Health Care Education/Training Program
DX: S83.411D Sprain of medial collateral ligament of right knee, subsequent encounter (principal); X58.XXXD Exposure to other specified factors, subsequent encounter
CPT/HCPCS: 73560

== ENCOUNTER 2024-06-13 22:49 | Outpatient (REF) | payer OTHER, SELFPAY ==
--- NOTE | 2024-06-13 14:00 | PAPFT_PTH ---
PATIENT: Tona Cohen LOC: [facility] U#:[id number] AGE/SX: 59/F ROOM: RE06/13/[address]: YURIY [place] : 1965 BED: DIS: 06/13/2024 SPEC #: [id number] RECD: 06/14/24 13:22 STATUS: GABRIEL REEmmanuel #: [id number] TEDDY: 06/13/24 14:[address]: Teresa Sykes DEPT: [facility] Cytology RECD BY: Gemma Zarco Tissues: 1 - CX/ENDOCX FOR PAP SMEARS Procedures: PAP THIN PREP/UVM Screening HPV DNA PROBE Comments: [id number] (HPV 16 & 18/45)
== END 2024-06-13 22:50 | disposition home or self-care (01) ==
LOC: LBN 22:49
PROVIDERS: PCP Nurse Practitioner Family; Visit Provider Nurse Practitioner Family
DX: Z12.4 Encounter for screening for malignant neoplasm of cervix (principal)
CPT/HCPCS: 88142; 87624

== ENCOUNTER 2024-06-24 09:24 | Outpatient (CLI) | payer OTHER, SELFPAY ==
[2024-06-24 12:24] LABS: Anion Gap 10.2 mmol/L (3-11); BUN 22 mg/dL (7-18); CO2 27.8 mmol/L (21.0-32.0); CREATININE 0.9 mg/dL (0.55-1.02); Calcium 9.5 mg/dL (8.5-10.1); Chloride 105 mmol/L (98-107); Estimated GFR 74.57 (mL/min/1.73m2); Glucose 101 mg/dL (74-106); Potassium 4.3 mmol/L (3.5-5.1); Sodium 143 mmol/L (136-145); Vitamin D 25 Total 30 ng/mL (30-100)
== END 2024-06-24 09:25 | disposition home or self-care (01) ==
PROVIDERS: PCP Nurse Practitioner Family; Visit Provider Nurse Practitioner Family
DX: I10 Essential (primary) hypertension (principal); E55.9 Vitamin D deficiency, unspecified
CPT/HCPCS: 36415; 80048; 82306

== ENCOUNTER → 2025-01-17 03:29 | Outpatient (CLI) | payer OTHER, SELFPAY ==
--- NOTE | 2025-01-17 07:59 | DI.RAD_ITS ---
Exam(s) XR THORACIC SPINE COMPLETE EXAM: XR THORACIC SPINE COMPLETE CLINICAL HISTORY: thoracic spine pain,m54.6. TECHNIQUE: 2D digital imaging was performed of the thoracic spine. Four views were obtained. AP, swimmer's and lateral views were obtained. COMPARISON: No exams were available for comparison FINDINGS: BONES: There is no fracture or destructive lesion. The vertebral bodies and posterior elements are unremarkable. DISKS:There is a left convex thoracolumbar scoliosis centered at T10. Interverebral disc spaces are maintained. Note is made of DISH in the thoracic spine. SOFT TISSUE: Visualized lungs are clear. IMPRESSION: 1. There is no acute abnormality in the thoracic spine. 2. Levoscoliosis of the thoracolumbar spine centered at T10. DATA REPOSITORY: RADIATION DOSE DELIVERED:
== END ==
LOC: DI 03:29
PROVIDERS: PCP Nurse Practitioner Family; Visit Provider Nurse Practitioner Family
DX: M54.6 Pain in thoracic spine (principal); M41.125 Adolescent idiopathic scoliosis, thoracolumbar region
CPT/HCPCS: 72072

== ENCOUNTER 2025-01-21 10:50 | Outpatient (CLI) | payer OTHER, SELFPAY ==
[2025-01-21 12:23] LABS: ALT 38 U/L (14-59); AST 19 U/L (15-37); Albumin 3.8 g/dL (3.4-5.0); Alkaline Phosphatase 82 U/L (46-116); Anion Gap 7.7 mmol/L (3-11); BUN 24 mg/dL (7-18); Bilirubin, Total 0.5 mg/dL (0.2-1.0); CO2 28.3 mmol/L (21.0-32.0); Calcium 8.8 mg/dL (8.5-10.1); Chloride 105 mmol/L (98-107); Glucose 92 mg/dL (74-106); Potassium 4.0 mmol/L (3.5-5.1); Sodium 141 mmol/L (136-145); Total Protein 7.1 g/dL (6.4-8.2)
== END 2025-01-21 10:51 | disposition home or self-care (01) ==
LOC: LBO 10:51
PROVIDERS: PCP Nurse Practitioner Family; Visit Provider Nurse Practitioner Family
DX: N95.1 Menopausal and female climacteric states (principal)
CPT/HCPCS: 36415; 80053

== ENCOUNTER → 2025-02-21 07:43 | Outpatient (CLI) | payer OTHER, SELFPAY ==
--- NOTE | 2025-02-21 07:15 | DI.MRI_ITS ---
Exam(s) MR THORACIC SPINE WO EXAM: MR THORACIC SPINE WO CLINICAL HISTORY: DISH,m48.10. TECHNIQUE: Multiplanar multisequence MRI of the Thoracic spine was performed. COMPARISON: CR XR THORACIC SPINE COMPLETE from 01/17/2025 FINDINGS: Bones: The vertebral body heights are well maintained. Mild thoracolumbar scoliosis.. The marrow signal characteristics are unremarkable. Cord: The thoracic cord is normal size and signal intensity. No intrinsic cord lesion is present. Soft tissues: Normal. Discs: There are endplate osteophytes projecting anteriorly and greater toward the right beginning at T3-4 and extending down to T11-12. The osteophytes are greatest in the mid thoracic levels, T6 7 through T8-9. There is mild narrowing of the anterior disc at these levels. No evidence of disc herniation at any level. There is no central canal stenosis or neural foraminal narrowing. IMPRESSION: Degenerative disc changes with somewhat prominent osteophytes, greatest in the mid thoracic level, consistent with DISH. No evidence of disc herniation, central canal stenosis or neural foraminal narrowing. DATA REPOSITORY:
== END ==
LOC: DI 07:44
PROVIDERS: PCP Nurse Practitioner Family; Visit Provider Nurse Practitioner Family
DX: M48.10 Ankylosing hyperostosis [Forestier], site unspecified (principal); M51.34 Other intervertebral disc degeneration, thoracic region
CPT/HCPCS: 72146